=== PATIENT | female | born 1995 | race Caucasian/White ===

== ENCOUNTER → 2018-07-02 | Emergency (ER) | payer MEDICAID, OTHER ==
[~2018-07-02] VITALS: Ht 167.6 cm; Wt 83.1 kg
[~2018-07-02] MED LIST: NO HOME MEDS; morphine 4 MG/ML inj SYRINge IV ONE
[2018-07-02 06:30] VITALS: BP 114/59
== END | disposition home or self-care (01) ==
LOC: ER 06:03
DX: S83.014A Lateral dislocation of right patella, initial encounter (principal); Z90.49 Acquired absence of other specified parts of digestive tract; Z91.040 Latex allergy status; Z88.8 Allergy status to other drugs, medicaments and biological substances; X58.XXXA Exposure to other specified factors, initial encounter; Y93.89 Activity, other specified; Y92.89 Other specified places as the place of occurrence of the external cause; Y99.9 Unspecified external cause status
CPT/HCPCS: 27560; 73560; 96374; 99284; J2270; 29505; 96372; 99283